=== PATIENT | female | born 1990 ===

== ENCOUNTER 2023-08-14 08:55 | Observation (INO) | payer OTHER, SELFPAY ==
[2023-08-14 09:05] VITALS: BP 136/69; BMI 32.7
[2023-08-14] MEDS: BRETHINE 250 MCG SC (09:37)
[2023-08-14 09:48] LABS: Hematocrit 34.7 % (37.0-47.0); Hemoglobin 11.7 g/dL (12.0-16.0); Mean Corp Hgb Conc. 33.7 g/dL (33.0-37.0); Mean Corpuscular Hgb 29.9 pg (27.0-31.0); Mean Corpuscular Volume 88.7 fL (81.0-99.0); Platelet Count 210 10^3/uL (130-400); Red Blood Cell Count 3.91 10^6/uL (4.20-5.40); Red Cell Dist. Width 13.2 % (11.5-14.5); White Blood Cell Count 8.6 10^3/uL (4.8-10.8)
== END 2023-08-14 11:44 | disposition home or self-care (01) ==
LOC: LDRP 08:55
PROVIDERS: ADMITTING PHYSICIAN Obstetrics & Gynecology
DX: O32.1XX0 Maternal care for breech presentation, not applicable or unspecified (principal); Z3A.38 38 weeks gestation of pregnancy
CPT/HCPCS: 59412; 59025; 85027; 86850; 86900; 86901; G0378

== ENCOUNTER 2023-08-22 18:52 | Inpatient (IN) | payer OTHER, SELFPAY ==
[2023-08-22 19:17] VITALS: BP 126/77; BMI 32.7
[2023-08-22 19:59] LABS: % Basophils 0.1 % (0-2); % Eosinophils 1.1 % (0-6); % Immature Granulocytes 0.3 % (0-0.5); % Lymphocytes 16.5 % (20.5-51.1); % Monocytes 7.5 % (1.7-9.3); % Neutrophils 74.5 % (42.2-75.2); Absolute Eosinophils 0.1 10^3/uL (0-0.7); Absolute Lymphocytes 1.5 10^3/uL (1.2-3.4); Absolute Monocytes 0.7 10^3/uL (0.1-0.6); Absolute Neutrophils 6.7 10^3/uL (1.4-6.5); Hematocrit 33.4 % (37.0-47.0); Hemoglobin 11.6 g/dL (12.0-16.0); Mean Corp Hgb Conc. 34.7 g/dL (33.0-37.0); Mean Corpuscular Hgb 30.1 pg (27.0-31.0); Mean Corpuscular Volume 86.5 fL (81.0-99.0); Mean Platelet Volume 10.1 fL (7.4-10.4); Nucleated Red Blood Cells % 0 %; Platelet Count 228 10^3/uL (130-400); Red Blood Cell Count 3.86 10^6/uL (4.20-5.40); Red Cell Dist. Width 13.4 % (11.5-14.5)
[2023-08-22] MEDS: CYTOTEC 25 MICROGRAM VAG (20:03)
[2023-08-23] MEDS: CYTOTEC 50 MICROGRAM PO (00:05)
[2023-08-23] MEDS: PITOCIN 30 UNITS/NSS 500 ML IV (06:07)
[2023-08-23] MEDS: CYTOTEC PO (06:08)
[2023-08-23] MEDS: FENTANYL/BUPIVACAINE 100 EPIDURAL ×2 (07:39→14:49)
[2023-08-23] MEDS: SUBLIMAZE 100 MCG EPIDURAL (07:39)
[2023-08-24 05:06] LABS: Hematocrit 32.8 % (37.0-47.0); Hemoglobin 10.9 g/dL (12.0-16.0)
[2023-08-24] MEDS: MOTRIN 600 MG PO ×3 (08:01→22:29)
[2023-08-24] MEDS: TYLENOL 650 MG PO ×3 (08:01→22:29)
[2023-08-24] MEDS: PRENATAL PLUS 1 TABLET PO (08:01)
[2023-08-25] MEDS: MOTRIN 600 MG PO (07:09)
[2023-08-25] MEDS: PRENATAL PLUS 1 TABLET PO (07:09)
[2023-08-25] MEDS: TYLENOL 650 MG PO (07:09)
[2023-08-25] MEDS: SENOKOT-S 1 TABLET PO (07:09)
[2023-08-25 13:18] LABS: Syphilis/T. pallidum Ab Reflex Negative (Negative)
== END 2023-08-25 12:17 | disposition home or self-care (01) | DRG 807 ==
LOC: LDRP 18:52
PROVIDERS: Obstetrics & Gynecology; ADMITTING PHYSICIAN Obstetrics & Gynecology
PROC: 3E0P7VZ Introduction of Hormone into Female Reproductive, Via Natural or Artificial Opening (ICD-10-PCS; 2023-08-22)
PROC: 0KQM0ZZ Repair Perineum Muscle, Open Approach (ICD-10-PCS; 2023-08-23)
PROC: 3E033VJ Introduction of Other Hormone into Peripheral Vein, Percutaneous Approach (ICD-10-PCS; 2023-08-23)
PROC: 10907ZC Drainage of Amniotic Fluid, Therapeutic from Products of Conception, Via Natural or Artificial Opening (ICD-10-PCS; 2023-08-23)
PROC: 10E0XZZ Delivery of Products of Conception, External Approach (ICD-10-PCS; 2023-08-23)
DX: O32.0XX0 Maternal care for unstable lie, not applicable or unspecified (principal); Z37.0 Single live birth; O70.1 Second degree perineal laceration during delivery; Z3A.39 39 weeks gestation of pregnancy
CPT/HCPCS: 85014; 85018; 85025; 86780; 86850; 86900; 86901